=== PATIENT | male | born 1950 | race Caucasian/White ===

== ENCOUNTER 2016-12-07 10:48 | Observation (INO) | payer OTHER ==
[2016-12-07] VITALS (8 sets, daily range): BP systolic 104–134; BP diastolic 63–84; PULSE 72–82; RESP 16–18; O2SAT 97–100
[~2016-12-07] VITALS: Ht 180.3 cm; Wt 62.1 kg
[2016-12-07] MEDS ORDERED: Propofol 10,000 mCg/mL 20 mL Inj ONE (12:10)
[2016-12-07] MEDS ORDERED: ASCO250T7 PO (12:16)
[2016-12-07] MEDS ORDERED: GARL1TAB PO (12:17)
[2016-12-07] MEDS ORDERED: CHOL10008 PO (12:17)
[2016-12-07] MEDS ORDERED: ROPI1TAB2 PO (12:18)
[2016-12-07] MEDS ORDERED: IBUP400T22 PO (12:18)
--- NOTE | 2016-12-07 13:19 | NUR ---
ADMIT Patient received from [facility] [place]LS. CBI is ongoing. Dark red UO noted with minimal clots and sediments noted. Rectal tube in place with brown colored loose stools noted. Minimal in amount. Patient denies pain, nausea/SOB. NPO since 0800. Surgery is scheduled at 1630. Oriented to room, call light and bathroom. Zaira alarm is in place at this time for safety. Per patient he had a fall recently and his gait is unsteady. (Pls. refer to admit grid for assessments). Addendum: 12/07/16 at 1707 by HUNG OWENS RN LATE NOTE FOR ADMIT Dr. Payton was paged by to make him aware that the patient is in the floor. Dr. Payton was in surgery at that time.
--- NOTE | 2016-12-07 17:07 | NUR ---
CBI Continuous bladder irrigation is ongoing. UO is cranberry colored. No clots noted at this time. Report given to Prema in the OR. Dr. Payton is in surgery at this time. Communicated to Perma to let Dr. Payton know that patient is in the floor. Addendum: 12/07/16 at 1722 by HUNG OWENS RN CONSENT Patient was seen by Dr. Payton. Consent form has been signed for a cystoscopy. Addendum: 12/07/16 at 1723 by HUNG OWENS RN MED REC Dr. Payton made aware to review med rec.
[2016-12-07] MEDS ORDERED: Lactated Ringer's 1,000 ML IV ONE (18:00)
--- NOTE | 2016-12-07 18:17 | NUR ---
TO OR Patient transported to OR via a hospital bed. Family is aware of this.
[2016-12-07] MEDS ORDERED: Lactated Ringer's 1,000 ML IV SCH (18:21)
[2016-12-07] MEDS ORDERED: Lactated Ringer's 500 ML IV PRN (18:21)
--- NOTE | 2016-12-07 18:21 | PCM.HPANE ---
Patient Data Surgeon Admitting Provider:Zoya Payton MD Attending Provider:Zoya Payton MD Primary Care Physician:Nakul Ortega MD Other Provider: Reason for Visit Gross Hematuria,Clot Retention Ht/WT & BMI Height (Feet): 5 Height (Inches): 11.00 Weight (Kilograms): 62.100 Body Mass Index 19.17 Allergies Coded Allergies: No Known Allergies (Verified Allergy, Unknown, 12/07/16) Past Anesthesia History Anesthesia History: Denies:: Anesthesia Reactions Diabetes History Hx Diabetes?: No MRSA MRSA: No Medications Reported Medications Ropinirole (Requip)1 Mg Tablet1 Mg PO HS Ref 0 12/07/16 Ibuprofen 400 Mg [id number] Mg PO QID PRN For Pain Ref 0 12/07/16 Garlic 1 Each Tablet1 Each PO DAILY 12/07/16 Cholecalciferol (Vitamin D3) (Vitamin D3)1,000 Unit Tab.chew1,000 Unit PO DAILY 12/07/16 Ascorbic Acid (Vitamin C)250 Mg Tab.olvu009 Mg PO DAILY #30 TABLET Ref 0 12/07/16 History History of ENT Problems?: No Hx of Heart Problems?: No Hx of Respiratory Problem?: No Hx Neurologic Problems?: No Hx of GI Problems?: Yes Gastrointestinal History: Denies:: Diverticulitis Gastroesphageal Reflux Gastrointestinal Bleeding Heartburn Hepatitis Hiatal Hernia Rectal Bleeding Other GI Pertinent History: HX: COLITIS Hx of Problems?: Yes Genitourinary History: Positive for:: Urinary Tract Infection Denies:: HX of Hemodialysis Kidney Stones HX of Peritoneal Dialysis: No Male Hx: Positive for:: Prostate Problems (BPH) Denies:: Scrotal Mass Testicular Surgery Hx Musculoskeletal Problems?: No Hx of Psycho/Social Problems?: No Hx Surgeries?: No Hx Any Other Health Problems?: No Other History: Denies:: Cancer Hospitalization (PROSTATE PROBLEMS) Thyroid Disease History Blood Transfusions: Positive for:: Accept Blood Products? Blood Transfusions Hx Diabetes: No Other Pertinent History: HX: COLONOSCOPY-COLITIS; RESTLESS LEGS Hx Alcohol Use: Yes (QUIT DRINKING 30 YRS. AGO)Hx Substance Use: Yes (MJ, ACID , [place]- 30 YRS AGO)Have You Smoked inLast 12 mo: YesApprox How Many Cigarettes/day: 5 STICKS/DAY Stop/Bang Treated for Sleep Apnea?: No Do You Have a CPAP Machine?: No S-Snoring: Do You Snore Loudly: No T-Tired: feel tired, fatigued: No O-Obsered: Observed not breath: No P-Blood Pressure: treated: No B- Body Mass Index > 35 kg/m2: No A- Age over 50: Yes N- Neck Large Circumference: No G- Gender Male: Yes JORDON Total Score: 1 JORDON Risk Assessment: Low Risk, <3 Yes Risk Assessment Category Category 1A: Patient has history of documented sleep apnea, and HAS NOT received any narcotic, sedative or anesthesia administration during this stay. Category 1B: Patient has history of documented sleep apnea, and HAS received any narcotic , sedative or anesthesia administration during this stay Category 2: Patient has SUSPECTED Obstructive Sleep Apnea, and HAS received any narcotic , sedative or anesthesia administration during this stay. Category 3: Patient has SUSPECTED Obstructive Sleep Apnea and HAS NOT received narcotic, sedative or anesthesia administration during this stay. Category 4: Outpatient in Procedural Areas with known sleep apnea or who screen positive for High Risk via the STOP/BANG questionnaire. Exam Exam Vital Signs Vital Signs Date Time Temp Pulse Resp B/P Pulse Ox O2 Delivery O2 Flow Rate FiO2 12/07/16 15:35 36.6 72 16 107/63 97 Room Air 12/07/16 12:22 36.3 74 18 117/74 100 Room Air General Appearance: Oriented X3 HEENT/AIRWAY: MP 2 Lungs: Normal Air Movement Heart: Regular Rate/Rhythm Plan Impression Patient chart reviewed, patient interviewed and anesthestic plan with risks, benefits, and alternatives discussed, and informed consent obtained. ASA Physical Status: ASA2 Mod Systemic Disease Anesthetic Plan: GA Bene/Risks/Altern/Consents: Yes HP Complete Prior to Induction: Yes Cl Peña MD Dec 07, 2016 18:21
[2016-12-07] MEDS ORDERED: Dexamethasone 4 mg/mL Inj IVPUSH PRN (18:25)
[2016-12-07] MEDS ORDERED: HYDROmorphone 1 mg/mL Inj IVPUSH PRN (18:25)
[2016-12-07] MEDS ORDERED: Ondansetron 2 mg/mL 2 mL Inj IVPUSH PRN (18:25)
[2016-12-07] MEDS ORDERED: EPHEDrine Sulfate 50 mg/mL Inj IVPUSH PRN (18:25)
[2016-12-07] MEDS ORDERED: fentaNYL-PF 50 mCg/mL 2 mL Inj IVPUSH PRN (18:25)
[2016-12-07] MEDS ORDERED: MetoCLOpramide 5 mg/mL 2 mL Inj IVPUSH PRN (18:25)
[2016-12-07] MEDS ORDERED: Phenylephrine 10,000 mCg/mL Inj IVPUSH PRN (18:25)
[2016-12-07] MEDS ORDERED: HYDROcodone-APAP 5-325 mg Tablet PO PRN (19:15)
[2016-12-07] MEDS ORDERED: Polyethylene Glycol (PEG) 17 Gm Powder PO PRN (19:15)
[2016-12-07] MEDS ORDERED: Belladonna Alk-Opium 60 mg Rectal Suppository RECTAL PRN (19:15)
--- NOTE | 2016-12-07 20:08 | NUR ---
Post-Op Pt arrived on floor at 1999. Pt is Alert and Oriented x3. IV is intact and patent. Monzon catheter in place and draining pink tinged urine. Rectal tube still in place. Continue to monitor.
--- NOTE | 2016-12-07 20:27 | HP ---
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 Over the last week he has had intermittent gross hematuria. He was seen at [facility] and admitted for a day and a half of continuous bladder irrigation and discharged home with a 3-way catheter in place. He returned to the emergency department last night with clot retention. The catheter was vigorously irrigated but the patient continued to have bleeding. It was elected to transfer him to [facility] for cystoscopy and declotting under anesthesia. For past medical, social, and family history, see Dr. Lilly's [employer] notes. PHYSICAL EXAMINATION: A fit 66-year-old, in no acute distress. He is oriented and understands the planned procedure. Chest is clear. Normal respiratory effort. The abdomen is soft, nontender. No masses. Genitalia: There is a three-way Monzon catheter in place. Rectal tube is in place for recent severe diarrhea. PLAN: The patient was admitted to the surgical floor with planned cystoscopy and declotting under anesthesia later today.
[2016-12-07] MEDS: Lactated Ringer's 1,000 ML IV SCH (21:32)
--- NOTE | 2016-12-07 21:56 | OP ---
[address] [address] OPERATIVE REPORT PATIENT: DHARMESH JUAREZ : 1950 MR#: [id number] ADMIT: 12/07/2016 JOB ID: [id number] DATE OF SURGERY: 12/07/2016 SURGEON: Zoya Payton MD PREOPERATIVE DIAGNOSIS(ES): Gross hematuria, clot retention. POSTOPERATIVE DIAGNOSIS(ES): Gross hematuria, clot retention. PROCEDURE: Cystoscopy and declotting. DESCRIPTION OF PROCEDURE: A 22-Ivorian cystoscope was introduced through a snug meatus. The urethra was erythematous from the indwelling Monzon catheter. Patient had significant prostate hyperplasia with a large middle lobe. The bladder was grossly trabeculated and filled with blood clot. Using a Marko syringe for irrigation, approximately 500 cc of blood clot was evacuated from the bladder. Once clot was removed, the bladder was inspected and there was oozing from several areas including the bladder neck but no specific bleeding site that needed cautery. The urethra was then dilated to 28-Ivorian with Diana sounds. A 24-Ivorian 3-way Monzon catheter was inserted and attached to continuous irrigation. The patient tolerated the procedure well, left the operating room in good condition with clear saline irrigations. I will plan to keep the irrigations up overnight and send him home with Monzon catheter in place, hopefully tomorrow. I will encourage him to undergo a transurethral resection of prostate because given the size of his prostate this is likely to happen over and over again.
[2016-12-08 00:23] VITALS: BP_SYST 100; BP_SYST 81; BP_DIAS 59; BP_DIAS 60; PULSE 84; RESP 20; O2SAT 96
--- NOTE | 2016-12-08 03:29 | NUR ---
Pain Pt. complained of pain in groin. PO Ibuprofen given. Pt. went to sleep afterwards. Will continue to monitor.
[2016-12-08 05:06] VITALS: BP 105/64; PULSE 72; RESP 16; O2SAT 98
[2016-12-08] MEDS: Lactated Ringer's 1,000 ML IV SCH (06:04)
[2016-12-08 06:23] LABS: Mean Corpuscular Hemoglobin 30.4 pg (27.0-35.0); Mean Corpuscular Volume 92.1 fL (81-100)
--- NOTE | 2016-12-08 07:26 | PCM.ANEP1 ---
Post Anesthesia Phase 1 PACU Phase 1 Assessment Vital Signs Vital Signs Date Time Temp Pulse Resp B/P Pulse Ox O2 Delivery O2 Flow Rate FiO2 12/08/16 05:06 36.6 72 16 105/64 98 Room Air 12/08/16 00:23 36.3 84 20 100/60 96 Room Air Level of Alertness: Awake, talking BUSH's with Equal Strength: Yes Pain: No Pain Scale Score: 7 Lungs: Normal Air Movement Cl Peña MD Dec 08, 2016 07:26
--- NOTE | 2016-12-08 07:27 | PCM.ANEP2 ---
Post Anesthesia Evaluation ASA/CMS Post Anesthesia VS in Patient's Normal Range?: Yes Resp Stable; Airway Patent?: Yes CV Function & Hydration Stable: Yes Mental Status Recovered?: Yes Pain control Satisfactory?: Yes N/V Control Satisfactory?: Yes Cl Peña MD Dec 08, 2016 07:26
[2016-12-08] MEDS ORDERED: GARLIC PO SCH (08:30)
[2016-12-08] MEDS ORDERED: Ascorbic Acid 500 mg Tablet PO SCH (08:30)
[2016-12-08 08:37] VITALS: BP 106/66; PULSE 72; RESP 16; O2SAT 99
--- NOTE | 2016-12-08 08:47 | PCM.PNSURG ---
Subjective Date of Service: Dec 08, 2016 Date of Service: Dec 08, 2016 Visit Information: Reason for Visit Gross Hematuria,Clot Retention Surgery/Surgery Date CYSTOSCOPY/ DECLOTTING 12/07/16 Post-Op Day # 1 Date of Admission: Dec 07, 2016 at 12:09 Hospital Day # 2 Subjective: No acute events. Mr Mejia states he is doing better. He denies any pain. He wants to go home. Postop General: No Complaints Gastrointestinal: Good Appetite Objective Vital Sign- Last 8 Hours Date Time Temp Pulse Resp B/P Pulse Ox O2 Delivery O2 Flow Rate FiO2 12/08/16 05:06 36.6 72 16 105/64 98 Room Air Intake and Output- Last 8 Hour 12/08/16 Cumulative From/Thru 07:00 12/07/16 12:22 - 12/08/16 05:58 Intake Total 1465 ml 1465 ml Output Total 650 ml 1010 ml Balance 815 ml 455 ml Intake Oral 440 ml 440 ml IV Total 1025 ml 1025 ml Output Urine Total 650 ml 1010 ml # Bowel Movements 50 50 General: Alert Abdomen: Benign, Soft Extremities: Warm Catheters: 3 Way Irrigation (totally clear in tubing and bag) Result Diagram: 12/08/16 0530 12/08/16 0530 Assessment & Plan Impression POD #1 clot evac, cysto Problems: Plan DC planning with Ttaiana Floyd MD Dec 08, 2016 08:47
--- NOTE | 2016-12-08 08:50 | PCM.DISURG ---
Surgical Discharge Instruction Date of Service Dec 08, 2016 Dates of Hospitalization Date of Hospital Admission Dec 07, 2016 at 12:09 Providers Admitting Physician: Zoya Payton MD Primary Care Physician: Nakul Ortega MD Attending Physician: Zoya Payton MD Discharge Diagnosis Discharge Diagnosis gross hematuria Post Operative diagnosis same Activity Discharge Activity-General: Try not to overdue Dressing and Incisional Care Hygiene: May shower Follow Up Plan Follow Up Plan 1 wk Tatiana Lilly MD Dec 08, 2016 08:50
--- NOTE | 2016-12-08 08:56 | PCM.DC.SUR ---
Discharge Summary Date of Service: Dec 08, 2016 Date of Hospital Admission: Dec 07, 2016 at 12:09 Date of Operation(s): 12/06/16 Date of Discharge: 12/07/16 Diagnosis at Time of Discharge Gross hematuria Problems: Operation cysto, clot evac Brief History and Physical: Mr Mejia was admitted after cysto, clot evac for ongoing gross hematuria. Hospital Course: His urine was clear POD#0. He wanted to go home as soon as possible. Disposition: Home Follow-up Plan: 1 wk. Ascorbic Acid (Vitamin C) 250 Mg Tab.chew 250 MG PO DAILY (Reported) Cholecalciferol (Vitamin D3) (Vitamin D3) 1,000 Unit Tab.chew 1,000 UNIT PO DAILY (Reported) Garlic (Garlic) 1 Each Tablet 1 EACH PO DAILY (Reported) Ibuprofen (Ibuprofen) 400 Mg Tablet 400 MG PO QID PRN PRN For Pain (Reported) Ropinirole (Requip) 1 Mg Tablet 1 MG PO HS (Reported) Tatiana Lilly MD Dec 08, 2016 08:56
--- NOTE | 2016-12-08 12:54 | NUR ---
POST-OP PROGRESS Patient denies pain. Tolerating liquids PO and his diet well. Denies nausea. No emesis noted. Denies SOB. Patient has been able to ambulate in the hallway with SBA and his FWW. Tolerated activity well. CBI was d/cd this morning. Yellow UO noted with some sediments. No blood clots noted at this time. Rectal tube d/cd. Stool was sent to the lab to R/O c-diff. Zaira alarm is on for safety.
--- NOTE | 2016-12-08 13:22 | NUR ---
Social Work Discharge: Order for discharge acknowledged. Patient is a 66 year old male admitted on 12/07/16 for gross hematuria and clot retention. Patient resides in [facility]. Patient has no previous HHC, SNF or AF history at this time. Patient pharmacy of choice as [facility]. Patient has a walker and cane for use at home. Patient states PCP as MD Ortega. Patient payer as Mack. Patient states being independent with needs and has no identified discharge needs at this time. Patient states mother to transport home upon discharge. SW will continue to follow as further needs arise. PLAN: Home via POV, pending clinical course. No anticipated discharge needs at this time. SW to follow Geo AKERS
--- NOTE | 2016-12-08 15:45 | NUR ---
Discharge Patients rectal tube DC'd this AM, per orders. Stopped continuous irrigation from catheter, per orders and just put cap in. Patient has been very anxious to discharge all day, since doctor told him earlier this morning. Patient denies pain, chest pain, SOB, nausea/vomitting. Removed IV. Patient given all discharge instructions and we went through it all together. Patient and his daughter stated that they understood everything. Patient said he understood how to properly care for his catheter at home because of experience in the past with one. Patient returned demonstration. Patients daughter taking him home. Left floor in wheelchair. Addendum: 12/08/16 at 1637 by HUNG OWENS RN DISCHARGE Patient denies pain. Tolerating liquids PO and his diet well. Denies nausea. No emesis noted. Denies SOB. Patient has been able to ambulate in the hallway with SBA and the FWW. Tolerated activity well. Gait was steady. IFC intact and draining to rich colored UO. No clots noted. Some sediments noted. No further loose stools noted. IV was d/cd by SN. Verified with Dr. Lilly: Patient is to continue home meds. No antibiotic/prescription ordered for him at this time. (Pls. refer to D/C note at discharge RE: D/C meds). Discharge instructions and care notes was given to the patient and he verbalized understanding. IFC instructions was given to the patient. (He already had an IFC prior to admit to the hospital and was also d/cd with and IFC in the past). Patient verbalized understanding and was able to demonstrate how to empty his IFC. Discharged to home with his daughter and all his personal belongings. (Copy of D/C is in the chart).
== END 2016-12-08 15:23 | disposition home or self-care (01) ==
LOC: INTOOBSV 12:09 → OSC 12:09
PROVIDERS: ADMIT Urology; ATTEND Urology
DX: R31.0 Gross hematuria (principal); N32.89 Other specified disorders of bladder; N40.1 Benign prostatic hyperplasia with lower urinary tract symptoms; R33.8 Other retention of urine; G25.81 Restless legs syndrome; F17.210 Nicotine dependence, cigarettes, uncomplicated; Z87.440 Personal history of urinary (tract) infections
CPT/HCPCS: 36415; 52001; 80048; 85027; 87493; G0378; G0379; J7120